=== PATIENT | female | born 1975 | race Caucasian/White ===

== ENCOUNTER → 2021-04-10 | Outpatient (CLI) | payer BC ==
[2021-04-10 15:22] LABS: ALBUMIN 4.5 g/dL (3.5-5.0)
[2021-04-10 15:23] LABS: POTASSIUM 4.3 mmol/L (3.5-5.1)
[2021-04-10 15:24] LABS: CALCIUM 9.3 mg/dL (8.3-10.5)
[2021-04-10 15:25] LABS: TOTAL PROTEIN 7.6 g/dL (6.4-8.3)
[2021-04-10 15:27] LABS: TOTAL BILIRUBIN 0.6 mg/dL (0.2-1.2)
== END ==
LOC: LAB 15:07
PROVIDERS: Internal Medicine
DX: R20.2 Paresthesia of skin (principal)

== ENCOUNTER → 2023-08-29 | Outpatient (CLI) | payer BC | LOC: RAD 08:00 | DX: K76.89 Other specified diseases of liver (principal) ==